=== PATIENT | female | born 2000 | race Caucasian/White ===

== ENCOUNTER 2018-09-18 14:57 | Inpatient (IN) ==
[2018-09-18] MEDS ORDERED: traZODone 50 MG TABLET PO PRN (15:19)
[2018-09-18] MEDS ORDERED: *HR* LORazepam 1 MG TABLET PO PRN (15:19)
[2018-09-18] MEDS ORDERED: *HR* LORazepam 2 MG/ML VIAL IM PRN (15:19)
[2018-09-18] MEDS ORDERED: Nicotine 2 MG GUM BC PRN (15:19)
[2018-09-18] MEDS ORDERED: Haloperidol Lactate 5 MG/ML VIAL IM PRN (15:19)
[2018-09-18] MEDS ORDERED: Mag Hydrox/Al Hydrox/Simeth 30 ML UDC PO PRN (15:19)
[2018-09-18] MEDS ORDERED: MOM Conc 10 ML UD.LIQ PO PRN (15:19)
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
[2018-09-18] MEDS: traZODone 50 MG TABLET PO PRN (21:22)
[2018-09-18] MEDS: hydrOXYzine pamoate 25 MG CAPSULE PO PRN (21:22)
[2018-09-19] MEDS: Nicotine 14 MG PATCH.TD24 TD SCH (08:36)
[2018-09-19] MEDS: ARIPiprazole 10 MG TABLET PO SCH (08:36)
[2018-09-19 10:12] LABS: Thyroid Stimulating Hormone 1.063 mcIU/mL (0.340-5.600)
[2018-09-19] MEDS: Ibuprofen 400 MG TABLET PO PRN (14:14)
[2018-09-19] MEDS: hydrOXYzine pamoate 25 MG CAPSULE PO PRN (21:14)
[2018-09-19] MEDS: traZODone 50 MG TABLET PO PRN (21:14)
[2018-09-20] MEDS: ARIPiprazole 10 MG TABLET PO SCH (08:26)
[2018-09-20] MEDS: Nicotine 14 MG PATCH.TD24 TD SCH (08:26)
--- NOTE | 2018-09-20 09:33 | Psychiatry Progress Note ---
Date of Encounter: 09/20/18 Time of Encounter: 09:33 Subjective Interval history: Patient's thinking is much more clear today. He was able to tell me about the events leading up to his overdose which included feeling jealous of his 9-month-old sister getting all the attention and being upset with his mother as well as frustrated that his outpatient team did not listen when he said the medications are not helping. There is a lot of externalization. As soon as he took the initial 40 pills he went and told his mother that he took them and wanted to go to the hospital but she called him stupid and said that he was not can bring the rate reviewer to their house so he went took an additional 10 pills to "show her". He then left the house and called his outpatient team and told them what he had done so that they would send help. She reports she is tolerating the medications at this time. The denies current suicidal ideations. Mood is fair. He is future oriented. He is out and active on the unit. Review of Systems Neurological: Denies: headache Psychiatric: Reports: depression, anxiety, abnormal sleep pattern, change in appetite, anhedonia. Denies: suicidal ideation, auditory hallucinations, visual hallucinations, memory loss, hopelessness Endocrine: Denies: fatigue Results - Vital Signs Vital Signs: Temp Pulse Resp BP Pulse Ox 98.6 F 115 16 108/73 98 09/20/18 09:00 09/20/18 09:00 09/20/18 09:00 09/20/18 09:00 09/20/18 09:00 - Labs Labs: Laboratory Results - last 24 hr 09/19/18 04:00 TSH 1.063 Free T4 0.73 Assessment and Plan (1) Major depression Current visit: No Status: Acute Plan: Continue hospitalization, Close observation, Suicide Precautions per unit protocol, Group Therapy, Monitor sleep, Monitor appetite Additional Plan: Continue current medications. Encourage group attendance. Therapist working on Outpatient Appointments. Risks, benefits, side effects, alternatives discussed w/pt: Yes Patient agreeable to treatment: Yes Qualifiers: Major depression recurrence: recurrent Active/Remission status: currently active Major depression episode severity: severe Psychotic features: without psychotic features Qualified Code(s): F33.2 - Major depressive disorder, recurrent severe without psychotic features Consult Discharge Plan - Plan Referrals: NONE,PCP [Primary Care Provider] - Psychiatry Exam - Constitutional Vitals: Temp Pulse Resp BP Pulse Ox 98.6 F 115 16 108/73 98 09/20/18 09:00 09/20/18 09:00 09/20/18 09:00 09/20/18 09:00 09/20/18 09:00 General appearance: age & developmentally appropriate, well-groomed, well- nourished - Musculoskeletal Gait: normal Station: relaxed Strength & Tone: normal for patient - Psychiatric Patient Orientation: Yes Person, Yes Time, Yes Place Level of alertness: Alert Behavior: calm, cooperative Psychomotor activity: Normal Eye Contact: Maintains Eye Contact Mood Description: Euthymic/stable, Depressed Patient description of mood: "down" Affect description: congruent with mood, full range Speech Volume: Normal Speech pattern: normal rate, normal rhythm, normal tone, fluent, spontaneous Language & Vocabulary: consistent with education Thought Process: Linear, Goal Oriented Thought Content: No Suicidal ideation, No Homicidal ideation, No Overt delusions Perceptual Disturbances: No Auditory hallucinations, No Visual hallucinations Attention Span Ability: Capable of Focused Attention Memory Description: Grossly Intact Patient Reliability: Reliable Historian Fund of knowledge: Yes abstraction ability, Yes aware of current events Intelligence Estimate: Average Judgment: Limited Insight: Partial
[2018-09-20] MEDS: Ibuprofen 400 MG TABLET PO PRN (18:56)
[2018-09-20] MEDS: hydrOXYzine pamoate 25 MG CAPSULE PO PRN (20:32)
[2018-09-20] MEDS: traZODone 50 MG TABLET PO PRN (20:32)
--- NOTE | 2018-09-21 08:06 | Discharge Summary ---
Date of Encounter: 09/21/18 Time of Encounter: 08:06 Diagnosis - Discharge Diagnosis (1) Bipolar 2 disorder, major depressive episode Status: Acute Medications - Discharge Medications Prescriptions: ARIPiprazole [Abilify] 10 mg PO DAILY #30 tablet Buspirone HCl [Buspar] 10 mg PO BID #60 tablet hydrOXYzine pamoate [HydrOXYzine Pamoate] 25 mg PO TID PRN #90 capsule PRN Reason: Anxiety Nicotine Patch [Nicoderm] 14 mg TD DAILY #30 patch.td24 Trazodone HCl 100 mg PO HS PRN #30 tablet PRN Reason: Sleep ARIPiprazole [Abilify] 10 mg PO DAILY #30 tablet 09/21/18 [Rx] Buspirone HCl [Buspar] 10 mg PO BID #60 tablet 09/21/18 [Rx] Nicotine Patch [Nicoderm] 14 mg TD DAILY #30 patch.td24 09/21/18 [Rx] Trazodone HCl 100 mg PO HS PRN #30 tablet 09/21/18 [Rx] hydrOXYzine pamoate [HydrOXYzine Pamoate] 25 mg PO TID PRN #90 capsule 09/21/18 [Rx] Allergy/AdvReac Type Severity Reaction Status Date / Time Penicillins Allergy Anaphylaxis Verified 09/19/18 15:23 Results Procedures and tests throughout hospitalization: Completed Lab Orders Category Date Time Status Thyroid Stimulating Hormone AM 0400 Lab 09/19/18 04:00 Completed Thyroxine (T4) Free AM 0400 Lab 09/19/18 04:00 Completed Provider Date of admission: 09/18/18 14:57 Primary care physician: PCP NONE Discharging clinician: Sonia Lerma Psychiatry Exam - Constitutional Vitals: Temp Pulse Resp BP Pulse Ox 98.3 F 103 16 110/74 99 09/20/18 19:54 09/20/18 19:54 09/20/18 19:54 09/20/18 19:54 09/20/18 19:54 General appearance: age & developmentally appropriate, well-groomed, well- nourished - Musculoskeletal Gait: normal Station: relaxed Strength & Tone: normal for patient - Psychiatric Patient Orientation: Yes Person, Yes Time, Yes Place Level of alertness: Alert Behavior: calm, cooperative Psychomotor activity: Normal Eye Contact: Maintains Eye Contact Mood Description: Euthymic/stable Affect description: congruent with mood, full range Speech Volume: Normal Speech pattern: normal rate, normal rhythm, normal tone, fluent, spontaneous Language & Vocabulary: consistent with education Thought Process: Linear, Goal Oriented Thought Content: No Suicidal ideation, No Homicidal ideation, No Overt delusions Perceptual Disturbances: No Auditory hallucinations, No Visual hallucinations Attention Span Ability: Capable of Focused Attention Memory Description: Grossly Intact Patient Reliability: Reliable Historian Fund of knowledge: Yes abstraction ability, Yes aware of current events Intelligence Estimate: Average Judgment: Good Insight: Full Hospital Course Hospital course: Ms. Garcia is a 18 year old female Who was admitted from the medical floor following an overdose. Her Lamictal was stopped as she felt it was not helpful and Abilify was titrated up to help her depression and mood lability. She was continued on her BuSpar for anxiety. Patient was educated of diagnosis and the risk-benefit side effects of this alternative treatment options and was monitored for responsiveness and side effects. Mood anxiety sleep and appetite interest improved as did future orientation. Self-harm thoughts subsided, thinking cleared, psychosis resolved, and mood stabilized. Patient was able to attend both individual and group therapy sessions as well as meet with the psychiatrist daily and urged to discuss any medication or treatment issues or other concerns. The patient was educated primarily by verbal means about their diagnosis and manifestations in their life. The option for treatment including group and individual therapy programming was offered to the patient in addition to the use of medications wit h all their potential risks, benefits, and side effects as well as the risks of not taking medication and non-adhereance were discussed with the patient at length. The patient was given the opportunity to ask questions and was noted to participate in the treatment in the planning process. The patient felt ready and eager to be discharged from the inpatient psychiatric unit to continue on with treatment as an outpatient. The patient agreed that is they were safe for this disposition. The patient was considered to be able to participate in informed consent and decision making with respect to medical, legal, and financial issues of the time of discharge. At the time of discharge the patient adamantly denied any concerns for lethality including suicidal or homicidal thoughts ideations or plans and was future oriented toward ongoing mental health care, medical follow-up and sobriety. Time spent discussing smoking cessation with patient: more than 10 minutes Does patient wish to continue nicotine replacement upon disc: Yes (patch) - Time Spent with Patient Total time spent providing and/or coordinating discharge services: Less than 30 minutes Specific discharge activities: Interval history reviewed. Available labs reviewed . Psychotherapy provided. Patient had an opportunity to ask questions and address concerns. Patient was in agreement with the treatment plan. The risks benefits and side effects of medications were discussed with the patient, including alternatives and treatment. The patient was educated on the abstaining from any alcohol or illicit substances, following up with all scheduled appointments, and taking all medications as prescribed. The patient was educated on 90 meetings in 90 days and to find a sponsor. Assessment and Plan - Patient/Caregiver Discharge Instructions Activity: resume usual activities as tolerated, return to work Diet: regular diet Additional Instructions: Continue current medications. Follow up with outpatient mental health. Encourage continued therapy in a group or individual setting. The patient was discharged to home. - Follow up Plan Follow up with: NONE,PCP [Primary Care Provider] - Overall status at discharge: Stable Disposition: Home, Self-Care Quality - Multiple Antipsychotics Patient discharged on 2 or more antipsychotic medications: No Procedures - Procedures Procedures: Medication Management, Crisis Stabilization, Supportive Therapy, Group Therapy, Psychoeducational Therapy
[2018-09-21] MEDS: ARIPiprazole 10 MG TABLET PO SCH (08:38)
[2018-09-21] MEDS: Nicotine 14 MG PATCH.TD24 TD SCH (08:38)
[2018-09-21 09:04] VITALS: BP 114/82
== END 2018-09-21 09:50 | disposition home or self-care (01) | DRG 753 ==
LOC: 1ANU 14:57
PROVIDERS: ADMIT Psychiatry & Neurology Psychiatry; ATTEND Psychiatry & Neurology Psychiatry

== ENCOUNTER → 2020-04-07 20:50 | Observation (INO) | END | disposition home or self-care (01) | LOC: 1NENULAB | PROVIDERS: ADMIT Obstetrics & Gynecology; ATTEND Obstetrics & Gynecology ==